=== PATIENT | female | born 1935 | race Caucasian/White ===

== ENCOUNTER 2024-04-27 13:39 | Observation (INO) | payer OTHER ==
[2024-04-27 14:39] VITALS: BMI 34.7
[2024-04-27 16:16] LABS: BASO % 0.5 % (0-2.0); EOS % 3.8 % (0-4.5); HEMATOCRIT 35.8 % (32.4-45.2); HEMOGLOBIN 11.8 GM/dL (10.7-15.3); LYMPH % 20.7 % (8-40); MCH 32.1 pg (25.7-33.7); MEAN CELL VOLUME 97.4 fl (80-96); MEAN PLT VOLUME 9.7 fl (7.5-11.1); MONO % 10.1 % (3.8-10.2); NEUT % 64.9 % (42.8-82.8); PLATELET COUNT 168 10^3/uL (134-434); RBC 3.67 M/mm3 (3.60-5.2); RDW 16.4 % (11.6-15.6); WHITE BLOOD COUNT 5.2 K/mm3 (4.0-10.0)
[2024-04-27 16:25] LABS: INR 2.27 (0.83-1.09)
[2024-04-27 16:28] LABS: ACTIVATED PTT 25.8 SECONDS (25.2-36.5)
[2024-04-27 16:30] LABS: POTASSIUM 4.4 mmol/L (3.5-5.1)
[2024-04-27 16:32] LABS: CALCIUM 8.8 mg/dL (8.5-10.1); MAGNESIUM 1.5 mg/dL (1.8-2.4)
[2024-04-27 16:36] LABS: CREATININE 1.5 mg/dL (0.55-1.3); PHOSPHOROUS 3.3 mg/dL (2.5-4.9)
[2024-04-27 16:37] LABS: BILIRUBIN,TOTAL 0.5 mg/dL (0.2-1); TOT PROT 6.5 g/dl (6.4-8.2)
[2024-04-27 16:56] LABS: EPI CELLS 0 /uL (0-25.1); HYALINE CASTS 0 /uL (0-3.1); URINE APPEARANCE TURBID; URINE BACTERIA 1943 /uL (0-1359); URINE BILIRUBIN NEGATIVE (NEGATIVE); URINE COLOR YELLOW; URINE GLUCOSE (UA) NEGATIVE (NEGATIVE); URINE KETONE NEGATIVE (NEGATIVE); URINE LEUK ESTERASE 3+ (NEGATIVE); URINE NITRITE NEGATIVE (NEGATIVE); URINE PROTEIN 1+ (NEGATIVE); URINE RBC 61 /uL (0-23.9); URINE UROBILINOGEN 0.2 mg/dL (0.2-1.0); URINE WBC 6662 /uL (0-25.8)
[2024-04-27 17:11] LABS: YEAST OCCASIONAL (NEGATIVE)
[2024-04-27] MEDS ORDERED: FLUCONAZOLE 150 MG TABLET PO ONE ×2 (17:49→18:07)
[2024-04-27] MEDS: FLUCONAZOLE 150 MG TABLET PO ONE (18:19)
[2024-04-27] MEDS ORDERED: MAGNESIUM SULFATE IN WATER 2 GM/50 ML IVPB IVPB ONE (20:46)
[2024-04-27] MEDS: MAGNESIUM SULFATE IN WATER 2 GM/50 ML IVPB IVPB ONE (20:53)
[2024-04-28] MEDS: INSULIN ASPART SLIDING SCALE (NOVOLOG) 1 VIAL SQ SCH (05:36)
[2024-04-28 08:16] LABS: BASO % 1.2 % (0-2.0); EOS % 5.5 % (0-4.5); HEMATOCRIT 37.1 % (32.4-45.2); MCHC 32.3 g/dl (32.0-36.0); MEAN CELL VOLUME 98.8 fl (80-96); MEAN PLT VOLUME 10.1 fl (7.5-11.1); MONO % 11.3 % (3.8-10.2); PLATELET COUNT 169 10^3/uL (134-434); RBC 3.75 M/mm3 (3.60-5.2); RDW 16.3 % (11.6-15.6); WHITE BLOOD COUNT 4.3 K/mm3 (4.0-10.0)
[2024-04-28 08:31] LABS: POTASSIUM 4.3 mmol/L (3.5-5.1)
[2024-04-28 08:33] LABS: BLOOD UREA NITROGEN 39.6 mg/dL (7-18); CALCIUM 9.2 mg/dL (8.5-10.1); INR 2.5 (0.83-1.09); MAGNESIUM 1.9 mg/dL (1.8-2.4)
[2024-04-28 08:36] LABS: CREATININE 1.3 mg/dL (0.55-1.3)
[2024-04-28] MEDS ORDERED: ONDANSETRON *ODT* 4 MG TABLET SL PRN (12:45)
[2024-04-28] MEDS: FAMOTIDINE 10 MG TABLET PO SCH (13:19)
[2024-04-28] MEDS: hydrALAZINE HCL 25 MG TABLET (FP) PO SCH (13:19)
[2024-04-28] MEDS: FOLIC ACID 1 MG TABLET (FP) PO SCH (13:19)
[2024-04-28] MEDS: VITAMIN B COMP W-C 1 EA TABLET (NEPHRO-VITE) PO SCH (13:19)
[2024-04-28] MEDS: GABAPENTIN 300 MG CAPSULE PO SCH (13:19)
[2024-04-28] MEDS ORDERED: WARFARIN NA 5 MG TABLET PO SCH (15:00)
[2024-04-28] MEDS: CEFTRIAXONE 1 GM in DEXTROSE 5%-WATER - 50 ML IVPB SCH (16:18)
[2024-04-28] MEDS: VENLAFAXINE HCL 75 MG E.R. CAPSULES PO SCH (16:18)
[2024-04-28] MEDS: WARFARIN NA 5 MG TABLET PO SCH (18:28)
[2024-04-28] MEDS: DOXYCYCLINE HYCLATE 100 MG CAPSULE PO SCH (18:29)
[2024-04-28] MEDS ORDERED: HEPARIN NA (PORCINE) 5,000 UNITS/ML 1ML VIAL SQ SCH (22:00)
[2024-04-28] MEDS: DOCUSATE SODIUM 100 MG CAPSULE (FP) PO SCH (23:43)
[2024-04-28] MEDS: BUDESONIDE/FORMETEROL FUMARATE 80/4.5 mcg INHALER IH SCH (23:45)
[2024-04-28] MEDS: NYSTATIN 100000 UNIT/GM TOPICAL OINTMENT 15 GM TUBE TP SCH (23:46)
[2024-04-29] MEDS: glipiZIDE 5 MG TABLET (FP) PO SCH (06:21)
[2024-04-29] MEDS: LEVOTHYROXINE NA 112 MCG TABLET (FP) PO SCH (06:22)
[2024-04-29 08:38] LABS: INR 2.64 (0.83-1.09)
[2024-04-29] MEDS: ACETAMINOPHEN 325 MG TABLET (FP) PO PRN (10:24)
[2024-04-30] MEDS: hydrALAZINE HCL 50 MG TABLET (FP) PO SCH (08:03)
[2024-04-30 08:22] LABS: INR 2.11 (0.83-1.09); PROTHROMBIN TIME (PATIENT) 23.7 SEC (9.7-13.0)
[2024-04-30 09:24] VITALS: RESP 18
[2024-04-30] MEDS: WARFARIN NA 2.5 MG, WARFARIN NA 3 MG PO SCH (17:59)
[2024-04-30] MEDS ORDERED: WARFARIN NA 5 MG TABLET PO SCH (18:00)
[2024-05-01 06:19] VITALS: TEMP 97.5
[2024-05-01 07:38] LABS: INR 1.98 (0.83-1.09); PROTHROMBIN TIME (PATIENT) 22.3 SEC (9.7-13.0)
[2024-05-01] MEDS ORDERED: TAMSULOSIN HCL 0.4 MG CAP PO SCH (08:30)
[2024-05-01] MEDS: TAMSULOSIN HCL 0.4 MG CAP PO SCH (09:55)
[2024-05-01 11:06] VITALS: BP 100/82; PULSE 65
[2024-05-01] MEDS: CEPHALEXIN MONOHYDRATE 500 MG CAPSULE (UD) PO SCH (11:28)
== END 2024-05-01 15:56 ==
LOC: JER 13:39 → UNDOADMOB 20:15 → JERBED 20:15 → J4W 04-28 01:03
PROVIDERS: ADMIT Internal Medicine; ATTEND Internal Medicine
PROC: 3E03329 Introduction of Other Anti-infective into Peripheral Vein, Percutaneous Approach (ICD-10-PCS; principal; 2024-04-27)
PROC: 3E033GC Introduction of Other Therapeutic Substance into Peripheral Vein, Percutaneous Approach (ICD-10-PCS; 2024-04-27)
PROC: 0T9B70Z Drainage of Bladder with Drainage Device, Via Natural or Artificial Opening (ICD-10-PCS; 2024-04-27)
DX: N39.0 Urinary tract infection, site not specified (principal); R33.9 Retention of urine, unspecified; F31.9 Bipolar disorder, unspecified; R40.0 Somnolence; E03.9 Hypothyroidism, unspecified; M46.40 Discitis, unspecified, site unspecified; R00.1 Bradycardia, unspecified; I10 Essential (primary) hypertension; Z88.5 Allergy status to narcotic agent; Z88.1 Allergy status to other antibiotic agents
CPT/HCPCS: 0241U-QW; 36415; 51702; 71045-TC-FY; 72148-TC; 80048; 80053; 81003; 82962; 83605; 83735; 84100; 84443; 84484; 85025; 85610; 85730; 87040; 87086; 87186; 93005; 93010; 96365; 96367; 97116-GP; 97162-GP; 99285-25; G0378

== ENCOUNTER 2024-05-27 11:47 | Observation (INO) | payer OTHER ==
[2024-05-27 12:55] LABS: VENOUS BASE EXCESS -3.2 mmol/L (-2-2); VENOUS PCO2 34.5 mmHg (38-52); VENOUS PH 7.398 (7.310-7.410)
[2024-05-27 12:57] LABS: BASO % 0.8 % (0-2.0); EOS % 0.9 % (0-4.5); HEMATOCRIT 44.7 % (32.4-45.2); HEMOGLOBIN 14.9 GM/dL (10.7-15.3); LYMPH % 20.2 % (8-40); MCH 31.7 pg (25.7-33.7); MCHC 33.4 g/dl (32.0-36.0); MEAN CELL VOLUME 95.1 fl (80-96); MEAN PLT VOLUME 10.3 fl (7.5-11.1); MONO % 7.7 % (3.8-10.2); NEUT % 70.4 % (42.8-82.8); PLATELET COUNT 287 10^3/uL (134-434)
[2024-05-27 13:11] LABS: PROTHROMBIN TIME (PATIENT) 47.3 SEC (9.7-13.0)
[2024-05-27 13:14] LABS: ACTIVATED PTT 66.2 SECONDS (25.2-36.5)
[2024-05-27] MEDS ORDERED: ONDANSETRON 4 MG/2 ML VIAL ONE (13:22)
[2024-05-27] MEDS ORDERED: FAMOTIDINE 20 MG/50 ML IVPB 20 MG/50 ML MG IVPB ONE (13:22)
[2024-05-27] MEDS ORDERED: ACETAMINOPHEN INJECTION 100 ML IVPB ONE (13:22)
[2024-05-27 13:27] LABS: CHLORIDE 103 mmol/L (98-107); SODIUM 133 mmol/L (136-145)
[2024-05-27 13:29] LABS: ALBUMIN 2.4 g/dl (3.4-5.0); BLOOD UREA NITROGEN 31.5 mg/dL (7-18); CALCIUM 8.4 mg/dL (8.5-10.1); CO2 21 mmol/L (21-32); MAGNESIUM 1.6 mg/dL (1.8-2.4)
[2024-05-27 13:30] LABS: ANION GAP 9 mmol/L (4-13); GLUCOSE,RANDOM 155 mg/dL (74-106); POTASSIUM 6.4 mmol/L (3.5-5.1)
[2024-05-27] MEDS: LACTATED RINGERS SOLUTION 1000 ML INFUS.BAG IV ONE ×2 (13:31→20:00)
[2024-05-27] MEDS: ONDANSETRON 4 MG/2 ML VIAL IVPUSH ONE (13:31)
[2024-05-27] MEDS: ACETAMINOPHEN 1000 MG/100 ML BAG IVPB ONE (13:31)
[2024-05-27] MEDS: FAMOTIDINE 20 MG/50 ML IVPB 20 MG/50 ML MG IVPB ONE (13:31)
[2024-05-27 13:32] LABS: SGOT/AST 86 U/L (15-37); SGPT/ALT 52 U/L (13-61)
[2024-05-27] MEDS: SODIUM CHLORIDE 0.9% 500 ML INFUS.BAG IV ONE ×2 (13:32→17:08)
[2024-05-27 13:33] LABS: CREATININE 1.7 mg/dL (0.55-1.3); PHOSPHOROUS 3.6 mg/dL (2.5-4.9)
[2024-05-27 13:34] LABS: BILIRUBIN,TOTAL 0.7 mg/dL (0.2-1); TOT PROT 5.8 g/dl (6.4-8.2)
[2024-05-27 13:35] LABS: ALK PHOS 187 U/L (45-117)
[2024-05-27 13:37] LABS: N-TERMINAL BNP 904.1 pg/ml (5-450)
[2024-05-27 14:18] LABS: INR 4.29 (0.83-1.09)
[2024-05-27] MEDS ORDERED: MAGNESIUM SULFATE IN WATER 2 GM/50 ML IVPB IVPB ONE (17:01)
[2024-05-27] MEDS: MAGNESIUM SULFATE IN WATER 2 GM/50 ML IVPB IVPB ONE (17:08)
[2024-05-27 17:34] LABS: CHLORIDE 104 mmol/L (98-107); SODIUM 129 mmol/L (136-145)
[2024-05-27 17:35] LABS: BLOOD UREA NITROGEN 32.3 mg/dL (7-18); CO2 21 mmol/L (21-32)
[2024-05-27 17:36] LABS: GLUCOSE,RANDOM 118 mg/dL (74-106)
[2024-05-27 17:39] LABS: CREATININE 1.6 mg/dL (0.55-1.3)
[2024-05-27 17:49] LABS: ANION GAP 4 mmol/L (4-13); POTASSIUM > 10.0 mmol/L (3.5-5.1)
[2024-05-27 21:08] LABS: POTASSIUM 4.2 mmol/L (3.5-5.1)
[2024-05-27 21:09] LABS: BLOOD UREA NITROGEN 31.2 mg/dL (7-18); CALCIUM 7.9 mg/dL (8.5-10.1)
[2024-05-27 21:13] LABS: CREATININE 1.5 mg/dL (0.55-1.3)
[2024-05-28 05:39] VITALS: BMI 30.5
[2024-05-28 09:01] LABS: HEMATOCRIT 38.6 % (32.4-45.2); HEMOGLOBIN 12.5 GM/dL (10.7-15.3); MCH 31.9 pg (25.7-33.7); MCHC 32.3 g/dl (32.0-36.0); MEAN CELL VOLUME 98.6 fl (80-96); MEAN PLT VOLUME 9.8 fl (7.5-11.1); PLATELET COUNT 177 10^3/uL (134-434); RBC 3.92 M/mm3 (3.60-5.2); RDW 16.4 % (11.6-15.6); WHITE BLOOD COUNT 6.2 K/mm3 (4.0-10.0)
[2024-05-28 09:10] LABS: PROTHROMBIN TIME (PATIENT) 52.5 SEC (9.7-13.0)
[2024-05-28 09:19] LABS: POTASSIUM 3.9 mmol/L (3.5-5.1)
[2024-05-28 09:21] LABS: CALCIUM 8.2 mg/dL (8.5-10.1)
[2024-05-28 09:22] LABS: BLOOD UREA NITROGEN 30.7 mg/dL (7-18); MAGNESIUM 1.9 mg/dL (1.8-2.4)
[2024-05-28 09:25] LABS: CREATININE 1.4 mg/dL (0.55-1.3)
[2024-05-28 10:14] LABS: INR 4.87 (0.83-1.09)
[2024-05-28] MEDS: hydrALAZINE HCL 50 MG TABLET (FP) PO SCH (14:38)
[2024-05-28] MEDS: ACETAMINOPHEN 325 MG TABLET (FP) PO PRN (14:38)
[2024-05-28] MEDS: GABAPENTIN 300 MG CAPSULE PO SCH (14:38)
[2024-05-28] MEDS: SODIUM CHLORIDE 0.45% 1,000 ML IV SCH (16:31)
[2024-05-28] MEDS ORDERED: WARFARIN NA 3 MG TABLET PO SCH (18:00)
[2024-05-28] MEDS: BUDESONIDE/FORMETEROL FUMARATE 80/4.5 mcg INHALER IH SCH (21:13)
[2024-05-28 22:00] VITALS: RESP 18
[2024-05-29] MEDS: LEVOTHYROXINE NA 112 MCG TABLET (FP) PO SCH (06:24)
[2024-05-29] MEDS ORDERED: glipiZIDE 5 MG TABLET (FP) PO SCH (07:00)
[2024-05-29 08:55] LABS: POTASSIUM 4.6 mmol/L (3.5-5.1)
[2024-05-29 08:59] LABS: CALCIUM 8.1 mg/dL (8.5-10.1)
[2024-05-29 09:00] LABS: BLOOD UREA NITROGEN 25.9 mg/dL (7-18)
[2024-05-29 09:01] LABS: INR 3.22 (0.83-1.09); PROTHROMBIN TIME (PATIENT) 35.8 SEC (9.7-13.0)
[2024-05-29 09:03] LABS: CREATININE 1.2 mg/dL (0.55-1.3)
[2024-05-29] MEDS: FAMOTIDINE 10 MG TABLET PO SCH (09:10)
[2024-05-29] MEDS: FOLIC ACID 1 MG TABLET (FP) PO SCH (09:10)
[2024-05-29] MEDS: VENLAFAXINE HCL 75 MG E.R. CAPSULES PO SCH (09:10)
[2024-05-29] MEDS ORDERED: VITAMIN B COMP W-C 1 EA TABLET (NEPHRO-VITE) PO SCH (10:00)
[2024-05-29 10:31] VITALS: PULSE 64
[2024-05-29 15:21] VITALS: BP 138/74; TEMP 97.7
[2024-05-29] MEDS ORDERED: WARFARIN NA 5 MG TABLET PO SCH (18:00)
== END 2024-05-29 16:18 ==
LOC: JER 11:47 → JERBED 21:51 → J4S 05-28 04:44
PROVIDERS: ADMIT Internal Medicine; ATTEND Internal Medicine
PROC: 3E033NZ Introduction of Analgesics, Hypnotics, Sedatives into Peripheral Vein, Percutaneous Approach (ICD-10-PCS; principal; 2024-05-27)
PROC: 3E033GC Introduction of Other Therapeutic Substance into Peripheral Vein, Percutaneous Approach (ICD-10-PCS; 2024-05-27)
PROC: 3E033GC Introduction of Other Therapeutic Substance into Peripheral Vein, Percutaneous Approach (ICD-10-PCS; 2024-05-27)
DX: E11.22 Type 2 diabetes mellitus with diabetic chronic kidney disease (principal); I12.9 Hypertensive chronic kidney disease with stage 1 through stage 4 chronic kidney disease, or unspecified chronic kidney disease; N18.9 Chronic kidney disease, unspecified; I48.91 Unspecified atrial fibrillation; K21.9 Gastro-esophageal reflux disease without esophagitis; F31.9 Bipolar disorder, unspecified; D68.8 Other specified coagulation defects; J44.9 Chronic obstructive pulmonary disease, unspecified
CPT/HCPCS: 0241U-QW; 36415; 71045-TC-FY; 74176-TC; 80048; 80053; 82803; 83036; 83735; 83880; 84100; 84443; 84484; 85025; 85027; 85610; 85730; 86850; 86900; 86901; 87635; 93005; 93010; 93306-TC; 96361; 96365; 96367; 96375; 97116-GP; 97162-GP; 99285-25; G0378; J0131

== ENCOUNTER 2025-06-02 11:02 | Observation (INO) | payer OTHER ==
[2025-06-02 11:24] VITALS: BMI 30.9
[2025-06-02 12:39] LABS: BG HCT 33.0 % (32.4-45.2); VENOUS BASE EXCESS 2.7 mmol/L (-2-2); VENOUS O2 SATURATION 67.0 % (70-80); VENOUS PCO2 46.6 mmHg (38-52); VENOUS PH 7.397 (7.310-7.410)
[2025-06-02 12:41] LABS: ABSOLUTE IMMATURE GRANULOCYTES 0.02 x10^3/uL (0.0-0.031); BASOPHILS # 0.04 x10^3/uL (0.01-0.08); EOSINOPHIL % 4.8 % (0.7-5.8); EOSINOPHILS # 0.28 x10^3/uL (0.04-0.36); MCHC 30.0 g/dl (32.2-35.5); MEAN CELL VOLUME 96.5 fl (79.4-94.8); MEAN PLT VOLUME 10.4 fl (9.4-12.3); MONOCYTE # 0.62 x10^3/uL (0.24-0.86); MONOCYTE % 10.6 % (4.7-12.5); RDW 17.2 % (12.5-17.0)
[2025-06-02 12:48] LABS: INR 1.91 (0.83-1.09); PROTHROMBIN TIME (PATIENT) 20.8 SEC (9.7-13.0)
[2025-06-02 12:51] LABS: ACTIVATED PTT 37.9 SECONDS (25.2-36.5)
[2025-06-02] MEDS ORDERED: PIPERACILLIN/TAZOB 4.5 GM 4.5 GM/100 ML BAG IVPB ONE (12:59)
[2025-06-02] MEDS ORDERED: FUROSEMIDE 40 MG/4 ML INJECTABLE VIAL ONE (12:59)
[2025-06-02] MEDS ORDERED: VANCOMYCIN 1 GM PREMIX (F) 1 GM/200 ML BAG ONE (13:00)
[2025-06-02 13:01] LABS: EPI CELLS 2 /uL (0-25.1); HYALINE CASTS 1 /uL (0-3.1); URINE APPEARANCE CLOUDY; URINE BACTERIA 7954 /uL (0-1359); URINE BILIRUBIN NEGATIVE (NEGATIVE); URINE COLOR YELLOW; URINE GLUCOSE (UA) NEGATIVE (NEGATIVE); URINE KETONE NEGATIVE (NEGATIVE); URINE LEUK ESTERASE 3+ (NEGATIVE); URINE NITRITE NEGATIVE (NEGATIVE); URINE PROTEIN 2+ (NEGATIVE); URINE UROBILINOGEN 0.2 mg/dL (0.2-1.0); URINE WBC 748 /uL (0-25.8)
[2025-06-02 13:18] LABS: CO2 28 mmol/L (21-32)
[2025-06-02 13:21] LABS: SGPT/ALT 25 U/L (13-61)
[2025-06-02 13:22] LABS: CREATININE 1.26 mg/dL (0.55-1.3); SGOT/AST 71 U/L (15-37)
[2025-06-02 13:24] LABS: ALK PHOS 87 U/L (45-117); TOT PROT 7.3 g/dl (6.4-8.2)
[2025-06-02 13:26] LABS: N-TERMINAL BNP 1649.1 pg/ml (5-450)
[2025-06-02] MEDS: FUROSEMIDE 40 MG/4 ML INJECTABLE VIAL IVPUSH ONE (13:34)
[2025-06-02] MEDS: VANCOMYCIN 1,000 MG in DEXTROSE 5%-WATER - 250 ML IVPB ONE (13:35)
[2025-06-02] MEDS: PIPERACILLIN/TAZOB 4.5 GM 4.5 GM in DEXTROSE 5%-WATER 100 ML IVPB ONE (13:38)
[2025-06-02 13:48] LABS: URINE RBC 84 /uL (0-23.9)
[2025-06-02 13:56] LABS: GLUCOSE,RANDOM 44 mg/dL (74-106)
[2025-06-02] MEDS ORDERED: DEXTROSE 50%-WATER 25 GM/50 ML DISP.SYRIN ONE (14:04)
[2025-06-02] MEDS: DEXTROSE 50%-WATER - 25 GM/50 ML VIAL IVPUSH ONE (14:05)
[2025-06-02] MEDS: CEFEPIME HCL 2 GM VIAL (RESTRICTED TO ID) IVPB ONE (16:02)
[2025-06-02 16:59] LABS: HIV INTERPRETATION NEGATIVE (NEGATIVE)
[2025-06-02 17:00] LABS: HCV DIAGNOSTIC IN-HOUSE W/RFLX NON-REACTIVE (NONREACTIVE)
[2025-06-02 20:43] LABS: GLUCOSE,RANDOM 73.0 mg/dL (74-106)
[2025-06-02 20:45] LABS: CO2 25.0 mmol/L (21-32)
[2025-06-02 20:49] LABS: CREATININE 1.07 mg/dL (0.55-1.3)
[2025-06-02] MEDS ORDERED: ACETAMINOPHEN 325 MG TABLET (FP) PO PRN (20:53)
[2025-06-02] MEDS ORDERED: ALBUTEROL SO4 2.5/IPRATROPIUM 0.5 INH SOL 3 ML VIAL.NEB. NEB SCH (22:00)
[2025-06-02] MEDS: GABAPENTIN 300 MG CAPSULE PO SCH (22:20)
[2025-06-02] MEDS ORDERED: INSULIN ASPART SLIDING SCALE (NOVOLOG) 1 VIAL SQ ONE (22:20)
[2025-06-02] MEDS: INSULIN ASPART SLIDING SCALE (NOVOLOG) 1 VIAL SQ SCH (22:21)
[2025-06-03] MEDS: LEVOTHYROXINE NA 112 MCG TABLET (FP) PO SCH (06:02)
[2025-06-03 06:51] LABS: MCHC 30.0 g/dl (32.2-35.5); MEAN CELL VOLUME 96.2 fl (79.4-94.8); MEAN PLT VOLUME 11.4 fl (9.4-12.3); RDW 17.2 % (12.5-17.0)
[2025-06-03] MEDS: FUROSEMIDE 40 MG/4 ML INJECTABLE VIAL IVPUSH SCH (10:07)
[2025-06-03] MEDS: FAMOTIDINE 10 MG TABLET PO SCH (10:07)
[2025-06-03] MEDS: FOLIC ACID 1 MG TABLET (FP) PO SCH (10:07)
[2025-06-03] MEDS: LOSARTAN POTASSIUM 50 MG TABLET PO SCH (10:07)
[2025-06-03] MEDS: DOXYCYCLINE MONOHYDRATE 25 MG/5 ML SUSPENSION PO SCH (10:07)
[2025-06-03] MEDS: VITAMIN B COMP W-C 1 EA TABLET (NEPHRO-VITE) PO SCH (10:07)
[2025-06-03 10:25] LABS: GLUCOSE,RANDOM 100.0 mg/dL (74-106); TOT PROT 5.9 g/dl (6.4-8.2)
[2025-06-03 10:26] LABS: CO2 27.0 mmol/L (21-32)
[2025-06-03 10:28] LABS: ALK PHOS 73.0 U/L (40-150)
[2025-06-03 10:30] LABS: SGOT/AST 26.0 U/L (5-34); SGPT/ALT 9.0 U/L (0-55)
[2025-06-03 10:31] LABS: CREATININE 1.36 mg/dL (0.55-1.3)
[2025-06-03 10:37] LABS: N-TERMINAL BNP 1306.3 pg/mL (0-299.9)
[2025-06-03 10:50] VITALS: TEMP 98.1
[2025-06-03] MEDS: VENLAFAXINE HCL 75 MG E.R. CAPSULES PO SCH (11:52)
[2025-06-03] MEDS: FLUTICASONE/UMECLIDIN/VILANTER(100-62.5-25 TRELEGY ELLIPTA) INAHLER IH SCH (11:52)
[2025-06-03] MEDS: ALBUTEROL SO4 2.5/IPRATROPIUM 0.5 INH SOL 3 ML VIAL.NEB. NEB SCH (12:24)
[2025-06-03] MEDS: BENZONATATE 200 MG CAPSULE PO PRN (14:10)
[2025-06-03 14:20] VITALS: BP 177/59; PULSE 51; RESP 20
[2025-06-03] MEDS: hydrALAZINE HCL 50 MG TABLET (FP) PO PRN (14:23)
[2025-06-03] MEDS ORDERED: WARFARIN NA 2 MG TABLET PO SCH (18:00)
== END 2025-06-03 15:07 ==
LOC: JER 11:02 → JERBED 20:12 → J4S 21:48
PROVIDERS: ADMIT Hospitalist; ATTEND Internal Medicine
PROC: 3E03329 Introduction of Other Anti-infective into Peripheral Vein, Percutaneous Approach (ICD-10-PCS; principal; 2025-06-02)
PROC: 3E0337Z Introduction of Electrolytic and Water Balance Substance into Peripheral Vein, Percutaneous Approach (ICD-10-PCS; 2025-06-02)
PROC: 3E0F7GC Introduction of Other Therapeutic Substance into Respiratory Tract, Via Natural or Artificial Opening (ICD-10-PCS; 2025-06-02)
PROC: 3E033GC Introduction of Other Therapeutic Substance into Peripheral Vein, Percutaneous Approach (ICD-10-PCS; 2025-06-02)
DX: J96.01 Acute respiratory failure with hypoxia (principal); J18.9 Pneumonia, unspecified organism; F41.9 Anxiety disorder, unspecified; I50.23 Acute on chronic systolic (congestive) heart failure; E03.9 Hypothyroidism, unspecified; F41.8 Other specified anxiety disorders; I48.91 Unspecified atrial fibrillation; D64.9 Anemia, unspecified; D68.8 Other specified coagulation defects; J44.9 Chronic obstructive pulmonary disease, unspecified
CPT/HCPCS: 36415; 71045-TC-FY; 80048; 80053; 81003; 82803; 82962; 83735; 83880; 84100; 84484; 85025; 85027; 85379; 85610; 85730; 86803; 87086; 87389; 87637-QW; 93005; 93010; 94640; 96361; 96365; 96367; 96375; 96376; 99285-25; G0378